=== PATIENT | female | born 1945 | race Caucasian/White ===

== ENCOUNTER 2016-08-08 16:03 | Emergency (ER) | payer MEDICARE, BC ==
[~2016-08-08] VITALS: Ht 167.6 cm; Wt 62.1 kg
[~2016-08-08 16:03] MED LIST: SERT25TA PO
--- NOTE | 2016-08-08 16:08 | NUR ---
PT AMBULATORY TO ER BED 12. C/O GENERALIZED WEAKNESS AND DIZZINESS X 3 DAYS NOW. GOWNED AND PLACED ON MONITOR. STABLE VITALS. AWAITING MD RICH.
--- NOTE | 2016-08-08 16:15 | NUR ---
DR POLK AT BEDSIDE FOR EVAL.
[2016-08-08] MEDS ORDERED: IV NS 0.9% 500 ML BAG IV ONE (16:30)
--- NOTE | 2016-08-08 16:30 | NUR ---
IV LINE STARTED. BLOOD DRAWN AND SENT TO LAB.
[2016-08-08 16:35] LABS: BASOPHILS % (AUTO) 0.5 % (0.0-2.0); EOSINOPHILS # (AUTO) 0.1 /CMM (0.0-0.7); EOSINOPHILS % (AUTO) 1.6 % (0.0-6.0); HEMATOCRIT 39 % (33-45); LYMPHOCYTES # (AUTO) 1.7 /CMM (0.8-4.8); LYMPHOCYTES % (AUTO) 20.3 % (20.0-44.0); MEAN CORPUSCULAR HEMOGLOBIN 31 PG (26.0-33.0); MEAN CORPUSCULAR HGB CONC 34 g/dl (31.0-36.0); MEAN CORPUSCULAR VOLUME 91 fL (82-100); MONOCYTES # (AUTO) 0.4 /CMM (0.1-1.30); MONOCYTES % (AUTO) 4.2 % (2.0-12.0); NEUTROPHILS # (AUTO) 6.4 /CMM (1.8-8.9); NEUTROPHILS % (AUTO) 73.4 % (43.0-81.0); PLATELET COUNT (AUTO) 309 /CMM (150-450); RDW COEFFICIENT OF VARIATION 12.8 (11.5-15.0); RED BLOOD CELL COUNT(AUTO) 4.21 MIL/uL (4.0-5.2); WHITE BLOOD COUNT (AUTO) 8.6 K/uL (4.3-11.0)
[2016-08-08] MEDS ORDERED: IV NS 0.9% 500 ML IV ONE (16:39)
[2016-08-08] MEDS ORDERED: IV SET PRIMARY 1 EA INFUS.SET MC ONE (16:39)
[2016-08-08 16:44] LABS: CALCIUM, SERUM 8.9 mg/dL (8.5-10.1); CREATININE 1.1 mg/dL (0.6-1.3); POTASSIUM 4.2 mmol/L (3.5-5.1)
--- NOTE | 2016-08-08 17:27 | NUR ---
IV removed. Catheter intact and site benign. Pressure and 4x4 applied to site. No bleeding noted.Patient discharged to home in stable condition. Written and verbal after care instructions given. Patient verbalizes understanding of instruction. ambulatory with a steady gait. NAD. VS WNL.
[2016-08-08 17:29] VITALS: BP 112/65
== END 2016-08-08 17:29 | disposition home or self-care (01) ==
LOC: ER 16:04
DX: E86.0 Dehydration (principal); J20.9 Acute bronchitis, unspecified; F32.9 Major depressive disorder, single episode, unspecified; F41.9 Anxiety disorder, unspecified; I48.91 Unspecified atrial fibrillation
CPT/HCPCS: 36415; 71010-TC; 80048-TC; 85025-TC; A4606; J7040; Z7610

== ENCOUNTER 2018-11-14 14:39 | Emergency (ER) | payer MEDICARE, BC ==
--- NOTE | 2018-11-14 15:22 | NUR ---
CALLED IN ED WAITING ROOM, NO ANSWER
== END 2018-11-14 15:31 | disposition left against medical advice (07) ==
LOC: ER 14:41
DX: Z53.21 Procedure and treatment not carried out due to patient leaving prior to being seen by health care provider (principal)